=== PATIENT | female | born 1980 | race Caucasian/White ===

== ENCOUNTER 2016-08-15 09:40 | Emergency (ER) | payer OTHER ==
[~2016-08-15] VITALS: Ht 167.6 cm; Wt 65.0 kg
[~2016-08-15 09:40] MED LIST: BUPR150T8 PO; HYDR-4003 PO; LORA0.5T PO; OMEP20CA11 PO; ONDA8TAB10 PO; OXYC1TAB24 PO; SUMA20SP2 NS; VARENICLINE; ZLP5T PO; ZOLP5TAB2 SL
[2016-08-15 09:44] VITALS: BP 104/75; PULSE 88; RESP 14; O2SAT 98
[2016-08-15 10:12] LABS: BASOPHILS % (AUTO) 0.5 % (0-3); EOSINOPHILS % (AUTO) 2.1 % (0-5); MONOCYTES % (AUTO) 6.6 % (4-12); Mean Corpuscular Hemoglobin 30.4 pg (27.0-35.0); Mean Corpuscular Volume 89.7 fL (81-100); NEUTROPHILS % (AUTO) 52.3 % (40-74); Platelet Count 294 bil/L (150-400)
[2016-08-15] MEDS ORDERED: 0.9% Sodium Chloride 1,000 ML IV ONE (10:13)
--- NOTE | 2016-08-15 10:13 | ED.REPORT ---
HPI-Abd Pain F Under 40 Date of Service Aug 15, 2016 ED Provider: Isabel Delgado MD Patient is a 35 year old female w/ a hx of migraines who presents to the ED sent from due to RUQ abdominal pain for the past 4 days. Pain is exacerbated when eating. Pt c/o associated chills and "hot flashes." Pt has had an appendectomy and hysterectomy. Nursing Notes Stated Complaint: ABDOMINAL PAIN Chief Complaint: Female Abdominal Pain Nursing Notes Reviewed: Yes Allergies: Coded Allergies: Penicillins (Verified Allergy, Severe, HIVES, 05/29/16) Sulfa (Sulfonamide Antibiotics) (Verified Allergy, Severe, hives, 05/29/16) ketorolac (Verified Allergy, Intermediate, hives, 08/15/16) latex (Verified Allergy, Mild, 05/29/16) Scheduled Bupropion ER (Wellbutrin SR) 150 Mg Tablet.er 150 MG PO DAILY Omeprazole (Omeprazole) 20 Mg Capsule.dr 20 MG PO DAILY Sumatriptan (Sumatriptan) 20 Mg [place] 20 MG NS ONCE Scheduled PRN Hydrocodone-Acetaminophen 5-325 mg (Hydrocodone-Acetaminophen 5-325 mg) 1 Each Tablet 1-2 TABLET PO BID PRN PRN For Pain Lorazepam (Lorazepam) 0.5 Mg Tablet 0.5 MG PO DAILY PRN PRN For Insomnia Ondansetron ODT (Ondansetron ODT) 8 Mg Tab.rapdis 8 MG PO q8 hr PRN PRN For Nausea Zolpidem (Ambien) 5 Mg Tablet 5 MG PO HS PRN PRN For Insomnia oxyCODONE-Acetaminophen 5-325 mg (oxyCODONE-Acetaminophen 5-325 mg) 1 Each Tablet 1 TAB PO Q4H PRN PRN For Pain oxyCODONE-Acetaminophen 5-325 mg (oxyCODONE-Acetaminophen 5-325 mg) 1 Each Tablet 1-2 TAB PO Q6H PRN PRN For Pain Miscellaneous Medications ([chantix starting box]) 1 Zolpidem Tartrate (Edluar) 5 Mg Tab.subl 5 MG SL General Time Seen by MD: 10:12 Chief Complaint Abdominal pain Hx Obtained From: Patient Arrived By: Walk-in Sudden in Onset?: Yes Onset Occurred: 4 days ago Context of Onset: Eating Symptom Duration: Since onset Location: : RUQ Radiation: : Does not radiate Severity: Current: Moderate Recent Healthcare: No recent doctor visit, No recent hospitalization Similar Sx Previous: No Past Medical History Past Medical History Hx migraine Chronic opioid use Past Surgical History Reports: Appendectomy, Hysterectomy Smoking History Current Every Day Smoker Social History Alcohol Use: Denies alcohol use Drug Use: Denies drug use Occupation Works at [employer] Status Independent Review of Systems GI: Reports: Abdominal pain Complete sys rev & neg: except as marked. Physical Exam Initial Vital Signs Vital Signs (First) Date Time Temp Pulse Resp B/P Pulse Ox O2 Delivery O2 Flow Rate FiO2 08/15/16 09:44 36.6 88 14 104/75 98 Room Air Initial VS: Reviewed Head / Eyes: Atraumatic, Normocephalic, PERRL ENT: Mucous membranes moist, Conjunctiva normal, No scleral icterus Neck: Supple, Non-tender, Full range of motion Lymphatic: No lymphadenopathy Extremities: Vascular intact, Neuro intact, No swelling, No tenderness Skin: Warm, Dry, No cyanosis Neurologic: Alert, Oriented, Nonfocal Psychiatric: Mood/affect normal, Behavior normal, Normal thought content General/Constitutional: Awake, Alert, Cooperative, Not toxic appearing Respiratory / Chest: Atraumatic, Breath sounds NL, Breath sounds = bilat, No respiratory distress, No rales, No rhonchi, No wheezing, No retractions Cardiovascular: Heart rate NL, Regular rhythm, Heart sounds NL, No gallop, No murmurs, No rubs Abdomen: No guarding, No rebound, BS normoactive Tenderness/Guarding/Rebound: Positive: Tender RUQ... (Moderate) Back: Atraumatic, Inspection NL, Full range of motion, Painless range of motion , Non-tender, No midline vertebral tend Interpretation & Diagnostics Interpretation & Diagnostics: ABDOMINAL US IMPRESSION: A definite source of current symptoms is not seen. No biliary distention or evidence of gallstones or cholecystitis is found. Several punctate microcalcifications can be seen at the collecting system of the left kidney, and no obstruction is suspected. Dictated by: Andres Meléndez M.D. on 08/15/2016 at 11:49 Approved by: Andres Mleéndez M.D. on 08/15/2016 at 11:51 Lab Results Interpretation Result Diagram: 08/15/16 0930 08/15/16 0930 Test 08/15/16 09:30 White Blood Count 6.1th/mm3 (3.8-10.1) Red Blood Count 4.48mil/mm3 (3.90-5.20) Hemoglobin 13.6g/dL (12.0-15.6) Hematocrit 40.2% (35.0-46.0) Mean Corpuscular Volume 89.7fL (81-100) Mean Corpuscular Hemoglobin 30.4pg (27.0-35.0) Mean Corpuscular Hemoglobin Concent 33.8% (32.0-37.0) Red Cell Distribution Width 13.5% (12.3-15.4) Platelet Count 294bil/L (150-400) Neutrophils (%) (Auto) 52.3% (40-74) Lymphocytes (%) (Auto) 38.5% (14-46) Monocytes (%) (Auto) 6.6% (4-12) Eosinophils (%) (Auto) 2.1% (0-5) Basophils (%) (Auto) 0.5% (0-3) Sodium Level 140mEq/L (134-144) Potassium Level 3.5mEq/L (3.5-5.2) Chloride Level 102mEq/L (97-108) Carbon Dioxide Level 23mmol/L (18-29) Blood Urea Nitrogen 13mg/dL (6-20) Creatinine 0.53mg/dL (0.57-1.00) Estimat Glomerular Filtration Rate 189mL/min (>59) Glucose Level 109mg/dL (60-99) Calcium Level 9.1mg/dL (8.5-10.1) Magnesium Level 2.2mg/dL (1.6-2.6) Total Bilirubin 0.3mg/dL (0.0-1.2) Aspartate Amino Transf (AST/SGOT) 13U/L (0-50) Alanine Aminotransferase (ALT/SGPT) 10U/L (0-32) Alkaline Phosphatase 70U/L (25-150) Total Protein 7.4g/dL (6.4-8.4) Albumin 4.6g/dL (3.4-5.0) Lipase 30U/L (13-60) Re-Eval/Medical Decision Re-Evaluation/Progress : Time of Eval: 12:08 Patient Status: Pain improved Re-Evaluation/Progress Note: pT Counseled Regarding: Diagnosis, Lab results, Need for follow-up, When/why to return to ED Discharge & Departure Primary Impression: Abdominal Pain, Epigastric Ruled Out: Cholecystitis, Cholelithiases, Pancreatitis Disposition: Home Discharge Condition All VS Reviewed: Yes Condition: Stable Additional Instructions: Thank you for coming to the Emergency Department today. Your lab work and imaging is completely normal and does not show any signs of cholecystitis, cholelithiasis (stones in your gallbladder or a sick gallbladder) , pancreatitis or any acute diseasease. You could possibly be developing an ulcer. This can take 4-6 weeks to heal and potentially 2-3 weeks to stop hurting. Do not use Aspirin, Ibuprofen, or Aleve as that could aggravate your stomach. Take Tylenol for pain as needed and I will also give you a few Percocet. For severe headache you can use excerin sparingly. I am sending you home with one month of Omeprazole for stomach acid. Take this twice a day for 2 weeks, then decrease to daily for the rest of the month. Follow up with your primary care physician in the next 3-4 weeks. If you are still having pain, she may consider ordering a HIDA scan to look for gallbladder disfunction. Return to the Emergency Department if you experience any new or worsening symptoms. We hope you feel better soon! Referrals: You Spring MD (PCP) Edison Attestation Portion of this note were transcribed by Kishore Garcia. I, Dr. Delgado, personally performed the history, physical exam, and medical decision-making: I reviewed and confirmed the accuracy for the information in the transcribed note. Signed by: edison Carrillo, 08/15/16 1200 copies to: You Spring MD, Shawna L MD Aug 15, 2016 10:13 KISHORE GARCIA Aug 15, 2016 10:20
[2016-08-15] MEDS ORDERED: HYDROmorphone 0.5 mg/0.5 mL iSecure Syringe IVPUSH PRN (10:15)
[2016-08-15] MEDS ORDERED: Ondansetron 2 mg/mL 2 mL Inj IVPUSH PRN (10:15)
[2016-08-15 10:31] LABS: Magnesium 2.2 mg/dL (1.6-2.6)
[2016-08-15] MEDS ORDERED: Pantoprazole 4 mg/mL 10 mL Inj IVPUSH ONE (11:15)
--- NOTE | 2016-08-15 11:53 | DRSVH ---
PROCEDURE: US ABDOMEN INDICATIONS: RUQ pain TECHNIQUE: Real-time scanning was performed of the abdominal and retroperitoneal organs, with image documentatio n. COMPARISON: [facility], US, US ABDOMEN, 02/25/2016, 17:07. FINDINGS: Liver length: 18.90 cm Gallbladder Wall Thickness: 1.90 mm CHD: 2.20 mm CBD: 5.60 mm Spleen length: 9.36 cm Right kidney length: 11.70 cm Left kidney length: 11.31 cm Aorta(Proximal): 1.98 cm Aorta(Mid): 1.57 cm Aorta(Distal): 1.37 cm RCIA: 7.20 mm LCIA: 7.20 mm Liver: Liver is normal in size and homogeneous in echotexture. Gallbladder: The gallbladder appears normal Biliary ducts: Intrahepatic bile ducts are non-dilated. Extrahepatic bile duct caliber is normal. Normal is 6-7 mm or less in diameter, or 10 mm or less post-cholecystectomy. Pancreas: Visualized portions of the pancreas are sonographically normal. Spleen: Spleen is normal in size and homogeneous in echotexture. Splenic microcalcifications are no luis carlos. Kidneys: Kidneys are normal in size and echotexture. No hydronephrosis or obstructive nephrolithias is, and several punctate calculi can be noted on the left. No solid masses. Aorta: Visualized aorta is normal in caliber at less than 3 cm. Iliacs: Proximal common iliac arteries are normal in caliber at less than 2.5 cm. IVC: Intrahepatic inferior vena cava is patent. Miscellaneous: No free abdominal fluid. IMPRESSION: A definite source of current symptoms is not seen. No biliary distention or evidence of gallstones or cholecystitis is found. Several punctate microcalcifications can be seen at the [facility] ting system of the left kidney, and no obstruction is suspected. Dictated by: Andres Meléndez M.D. on 08/15/2016 at 11:49 Approved by: Andres Meléndez M.D. on 08/15/2016 at 11:51
[2016-08-15] MEDS ORDERED: OXYC1TAB24 PO (12:31)
[2016-08-15] MEDS ORDERED: HYDROmorphone 0.5 mg/0.5 mL iSecure Syringe ONE (12:46)
[2016-08-15] MEDS ORDERED: Ondansetron 2 mg/mL 2 mL Inj ONE (12:46)
[2016-08-15] MEDS ORDERED: Pantoprazole 4 mg/mL 10 mL Inj ONE (12:47)
[2016-08-15] MEDS ORDERED: HYDROmorphone 1 mg/mL Inj ONE (12:48)
[2016-08-15 12:56] VITALS: BP 116/71; PULSE 84; RESP 16; O2SAT 99
== END 2016-08-15 12:59 | disposition home or self-care (01) ==
LOC: SED 09:40
DX: R10.13 Epigastric pain (principal); F17.200 Nicotine dependence, unspecified, uncomplicated; Z90.49 Acquired absence of other specified parts of digestive tract; Z88.0 Allergy status to penicillin; Z88.2 Allergy status to sulfonamides; Z88.8 Allergy status to other drugs, medicaments and biological substances; Z91.040 Latex allergy status
CPT/HCPCS: 36415; 76700; 80053; 81002; 83690; 83735; 85025; 96361; 96374; 96375; 96376; 99285; A4300; G0463; J1170; J2405; J7030

== ENCOUNTER 2016-08-22 17:56 | Emergency (ER) | payer OTHER ==
[~2016-08-22] VITALS: Ht 167.6 cm; Wt 51.4 kg
[2016-08-22 17:59] VITALS: BP 117/86; PULSE 121; RESP 20; O2SAT 97
[2016-08-22] MEDS ORDERED: 0.9% Sodium Chloride 1,000 ML IV ONE (18:49)
--- NOTE | 2016-08-22 18:49 | ED.REPORT ---
HPI-Abd Pain F Under 40 Date of Service Aug 22, 2016 ED Provider: Eder SimonsO. A 35 year old female with a history of migraine, chronic opioid use, and endometriosis s/p multiple laparoscopies presents to the ED with severe diffuse abdominal pain onset two weeks ago. Her pain began in the center of her abdomen but has spread. Associated symptoms include anorexia and nausea. The patient denies diarrhea, urinary symptoms, hematochezia, constipation, or other symptoms. She was seen in the ED at onset and was discharged with Percocet and Omeprazole, but her pain has since progressed. Nursing Notes Stated Complaint: SEVERE STOMACHE PAIN Chief Complaint: Female Abdominal Pain Nursing Notes Reviewed: Yes Allergies: Coded Allergies: Penicillins (Verified Allergy, Severe, HIVES, 05/29/16) Sulfa (Sulfonamide Antibiotics) (Verified Allergy, Severe, hives, 05/29/16) ketorolac (Verified Allergy, Intermediate, hives, 08/15/16) latex (Verified Allergy, Mild, 05/29/16) Scheduled Bupropion ER (Wellbutrin SR) 150 Mg Tablet.er 150 MG PO DAILY Omeprazole (Omeprazole) 20 Mg Capsule.dr 20 MG PO DAILY Sumatriptan (Sumatriptan) 20 Mg [place] 20 MG NS ONCE Scheduled PRN Hydrocodone-Acetaminophen 5-325 mg (Hydrocodone-Acetaminophen 5-325 mg) 1 Each Tablet 1-2 TABLET PO BID PRN PRN For Pain Lorazepam (Lorazepam) 0.5 Mg Tablet 0.5 MG PO DAILY PRN PRN For Insomnia Ondansetron ODT (Ondansetron ODT) 8 Mg Tab.rapdis 8 MG PO q8 hr PRN PRN For Nausea Zolpidem (Ambien) 5 Mg Tablet 5 MG PO HS PRN PRN For Insomnia oxyCODONE-Acetaminophen 5-325 mg (oxyCODONE-Acetaminophen 5-325 mg) 1 Each Tablet 1 TAB PO Q4H PRN PRN For Pain oxyCODONE-Acetaminophen 5-325 mg (oxyCODONE-Acetaminophen 5-325 mg) 1 Each Tablet 1-2 TAB PO Q6H PRN PRN For Pain Miscellaneous Medications ([chantix starting box]) 1 Zolpidem Tartrate (Edluar) 5 Mg Tab.subl 5 MG SL General Time Seen by MD: 18:48 Chief Complaint Abdominal pain Hx Obtained From: Patient Arrived By: Walk-in Sudden in Onset?: No Onset Occurred: More than a week ago... (2 weeks) Symptom Duration: Since onset Progression since Onset: Gradually worsening Location: : Diffuse Quality: Painful Severity: Current: Moderate Severity: Maximum: Moderate Associated with: Reports: Anorexia, Nausea, Denies: Constipation, Diarrhea, Fever Pertinent Negative: Relieved by nothing Context Related History: Reports: Abdominal surgery, Endometriosis Recent Healthcare: Recent doctor visit Similar Sx Previous: Yes Past Medical History Past Medical History Migraines Endometriosis Chronic opioid use Past Surgical History Multiple laparoscopies Appendectomy Hysterectomy Smoking History Current Every Day Smoker Social History Alcohol Use: Denies alcohol use Drug Use: Denies drug use Occupation Works at [employer] Status Independent Review of Systems Review of Systems Note: - Urinary symptoms Constitutional: Denies: Fever Respiratory: Denies: Non-productive cough, Shortness of breath GI: Reports: Abdominal pain (Diffuse), Anorexia, Nausea, Denies: Constipation, Diarrhea, Hematochezia Complete sys rev & neg: except as marked. Physical Exam Initial Vital Signs Vital Signs (First) Date Time Temp Pulse Resp B/P Pulse Ox O2 Delivery O2 Flow Rate FiO2 08/22/16 17:59 37.2 121 20 117/86 97 Room Air Initial VS: Reviewed Head / Eyes: Atraumatic, Normocephalic ENT: Conjunctiva normal, No scleral icterus Neck: Supple, Full range of motion Skin: Warm, Dry, No cyanosis Neurologic: Alert, Oriented, Nonfocal Psychiatric: Mood/affect normal, Behavior normal, Normal thought content General/Constitutional: Awake, Alert Respiratory / Chest: Breath sounds NL, Breath sounds = bilat, No respiratory distress Cardiovascular: Heart rate NL, Regular rhythm, Heart sounds NL Abdomen: Soft, Non-tender Interpretation & Diagnostics URINE : Negative URINE DIPSTICK: 1.005 sp gravity 5 pH Normal Glucose Normal Urobilinogen Otherwise Negative Lab Results Interpretation Result Diagram: 08/22/16190908/22/161909 Test 08/22/16 19:10 08/22/16 19:42 08/22/16 22:49 White Blood Count 7.4th/mm3 (3.8-10.1) Red Blood Count 4.56mil/mm3 (3.90-5.20) Hemoglobin 13.8g/dL (12.0-15.6) Hematocrit 41.4% (35.0-46.0) Mean Corpuscular Volume 90.8fL (81-100) Mean Corpuscular Hemoglobin 30.3pg (27.0-35.0) Mean Corpuscular Hemoglobin Concent 33.3% (32.0-37.0) Red Cell Distribution Width 13.9% (12.3-15.4) Platelet Count 319bil/L (150-400) Neutrophils (%) (Auto) 46.0% (40-74) Lymphocytes (%) (Auto) 43.1% (14-46) Monocytes (%) (Auto) 6.1% (4-12) Eosinophils (%) (Auto) 4.2% (0-5) Basophils (%) (Auto) 0.5% (0-3) Sodium Level 143mEq/L (134-144) Potassium Level 3.8mEq/L (3.5-5.2) Chloride Level 103mEq/L (97-108) Carbon Dioxide Level 26mmol/L (18-29) Blood Urea Nitrogen 18mg/dL (6-20) Creatinine 0.50mg/dL (0.57-1.00) Estimat Glomerular Filtration Rate 202mL/min (>59) Glucose Level 97mg/dL (60-99) Calcium Level 9.5mg/dL (8.5-10.1) Magnesium Level 2.2mg/dL (1.6-2.6) Total Bilirubin 0.3mg/dL (0.0-1.2) Aspartate Amino Transf (AST/SGOT) 12U/L (0-50) Alanine Aminotransferase (ALT/SGPT) 13U/L (0-32) Alkaline Phosphatase 80U/L (25-150) Total Protein 7.6g/dL (6.4-8.4) Albumin 4.7g/dL (3.4-5.0) Lipase 26U/L (13-60) Lactic Acid Level 0.9mmol/L (0.4-2.0) Urine Color Straw (YELLOW) Urine Appearance Clear (CLEAR,HAZY) Urine pH 5.5 (5.0-8.0) Urine Specific [place] <1.005 (1.003-1.035) Urine Protein Negativemg/dL (NEG,TRACE) Urine Glucose (UA) Negativemg/dL (NEGATIVE) Urine Ketones Negativemg/dL (NEGATIVE) Urine Occult Blood Negative (NEGATIVE) Urine Nitrite Negative (NEGATIVE) Urine Bilirubin Negative (NEGATIVE) Urine Urobilinogen Normalmg/dL (NORMAL) Urine Leukocyte Esterase Negative (NEGATIVE) Urine RBC 0-2/hpf (0-2) Urine WBC 0-5/hpf (0-5) Urine Epithelial Cells Few/hpf (NONE-MOD) Urine Crystals None seen (NONE SEEN) Urine Bacteria Few/hpf (NONE-FEW) Urine Hyaline Casts None/lpf (NONE) Urine Granular Casts None seen (NONE SEEN) Urine Waxy Casts None seen (NONE SEEN) Urine Red Blood Cell Casts None seen (NONE SEEN) Urine White Blood Cell Casts None seen (NONE SEEN) Urine Mucus None seen (None Seen) Urine Trichomonas None seen (NONE SEEN) Urine Yeast None (NONE SEEN) Urinalysis Comment None Urine Culture Reflexed Not indicated CT Abd / Pelvis Interpretation IMPRESSION: 1. No acute process. No explanation for midline abdominal pain. 2. Appendix not seen. No evidence of appendicitis. 3. Remote granulomatous disease. Dictated by: Radha Crawford M.D. on 08/22/2016 at 21:27 Study type: Abdominal CT IV contrast, Abdom CT oral contrast Interpretation / Wet Read by: Interpret - Radiologist Re-Eval/Medical Decision Source of Hx: Old records Re-Evaluation/Progress : Time of Eval: 20:25 Patient Status: Condition improved Re-Evaluation/Progress Note: Patient rechecked. She is feeling better. Discussed with patient CT and lab results, diagnosis, and plan for discharge. Follow-up and return to the ER instructions given. Patient agrees with plan for care and all questions were addressed. Counseled Regarding: Diagnosis, Lab results, Need for follow-up, When/why to return to ED Discharge & Departure Primary Impression: Abdominal pain Abdominal location: generalized Qualified Code: R10.84 - Generalized abdominal pain Disposition: Home Discharge Condition All VS Reviewed: Yes Condition: Improved Patient Instructions: Acute Abdominal Pain (ED) Additional Instructions: Thank you for entrusting us with your care. Your lab work and CT today were reassuring. The cause of your pain is uncertain and you need close outpatient follow-up. Call your primary care provider or the referral physician for follow-up. For johnight, 1-2 [place] every six hours as needed for pain. Do not drink alcohol, drive, or consume acetaminophen while taking [place]. Return to the ER with any new or worsening symptoms. Referrals: [facility] (PCP) Scribe Attestation Portions of this note were transcribed by Sveta Hennessy. I, Dr. Martinez, personally performed the history, physical exam, and medical decision-making; I reviewed and confirmed the accuracy of the information in the transcribed note. Signed by: Genny Overton, 08/22/2016, 23:55 copies to: [facility] Daryn Martinez DO Aug 22, 2016 18:49 SVETA HENNESSY Aug 22, 2016 19:52
[2016-08-22 19:40] LABS: BASOPHILS % (AUTO) 0.5 % (0-3); EOSINOPHILS % (AUTO) 4.2 % (0-5); MONOCYTES % (AUTO) 6.1 % (4-12); Mean Corpuscular Hemoglobin 30.3 pg (27.0-35.0); Mean Corpuscular Volume 90.8 fL (81-100); Platelet Count 319 bil/L (150-400)
[2016-08-22] MEDS ORDERED: Iohexol 300 mg/mL 30 mL Inj PO ONE (19:45)
[2016-08-22] MEDS: HYDROmorphone 0.5 mg/0.5 mL iSecure Syringe IVPUSH PRN ×4 (19:56→21:52)
[2016-08-22] MEDS: Ondansetron 2 mg/mL 2 mL Inj IVPUSH PRN ×4 (19:56→21:52)
[2016-08-22 20:08] LABS: Magnesium 2.2 mg/dL (1.6-2.6)
--- NOTE | 2016-08-22 21:31 | DRSVH ---
PROCEDURE: CT ABDOMEN AND PELVIS WITH CONTRAST ([id number]) INDICATIONS: midline abdominal pain TECHNIQUE: After the administration of oral and intravenous contrast, 5 mm thick sections acquired from the diap hragms to the symphysis. 5 mm thick coronal and sagittal reformats were performed. For radiation do se reduction, the following was used: automated exposure control, adjustment of mA and/or kV accordi ng to patient size. COMPARISON: [facility], CT, KIDNEY/ URETER/BLADDER, 04/12/2014, 21:22. FINDINGS: Image quality: Excellent. ABDOMEN: Lung bases: Lung bases are clear. Heart size is normal. Solid organs: Liver and spleen are normal in size and enhancement. Scattered splenic calcifications are present. Gallbladder is within normal limits. Biliary system is non-dilated. Pancreas enhances normally. No adrenal nodules. Kidneys are normal in size and enhancement, without hydronephrosis. Peritoneum and bowel: Stomach, small bowel, and colon loops are normal in caliber and wall thickness . No free fluid or air. Appendix not seen. No evidence of appendicitis. Nodes and vessels: No retroperitoneal or mesenteric adenopathy. Aorta and inferior vena cava are no rmal in caliber. Miscellaneous: No ventral hernias. PELVIS: Genitourinary: Bladder wall thickness is normal. Miscellaneous: No inguinal hernias or adenopathy. Bones: No suspicious bony lesions. No vertebral body compression fractures. IMPRESSION: 1. No acute process. No explanation for midline abdominal pain. 2. Appendix not seen. No evidence of appendicitis. 3. Remote granulomatous disease. Dictated by: Radha Crawford M.D. on 08/22/2016 at 21:27 Approved by: Radha Crawford M.D. on 08/22/2016 at 21:29
[2016-08-22 23:01] LABS: APPEARANCE,URINE CLEAR (CLEAR,HAZY); COLOR,URINE STRAW (YELLOW); PH,URINE 5.5 (5.0-8.0)
[2016-08-22 23:02] LABS: OCCULT BLOOD,URINE NEGATIVE (NEGATIVE); UROBILINOGEN,URINE NORMAL (NORMAL)
[2016-08-22] MEDS ORDERED: _HYDROcodone/APAP 5-325 mg Tablet PO PRN (23:10)
[2016-08-22] MEDS ORDERED: _Ondansetron ODT 4 mg Tablet PO PRN (23:10)
[2016-08-23 00:07] VITALS: BP 98/67; PULSE 80; RESP 16; O2SAT 96
== END 2016-08-23 00:12 | disposition home or self-care (01) ==
LOC: SED 17:56
DX: R10.84 Generalized abdominal pain (principal); R11.0 Nausea; R63.0 Anorexia; G43.909 Migraine, unspecified, not intractable, without status migrainosus; F11.90 Opioid use, unspecified, uncomplicated; N80.9 Endometriosis, unspecified; F17.200 Nicotine dependence, unspecified, uncomplicated; Z88.0 Allergy status to penicillin; Z88.2 Allergy status to sulfonamides; Z88.8 Allergy status to other drugs, medicaments and biological substances; Z91.040 Latex allergy status
CPT/HCPCS: 36415; 74177; 80053; 81000; 83605; 83690; 83735; 85025; 96361; 96374; 96375; 96376; 99285; J1170; J2405; J7030; Q9967

== ENCOUNTER 2016-09-25 21:06 | Emergency (ER) | payer OTHER ==
[~2016-09-25] VITALS: Ht 167.6 cm; Wt 68.2 kg
[2016-09-25 21:39] VITALS: BP 115/87; PULSE 87; RESP 16; O2SAT 96
--- NOTE | 2016-09-25 22:11 | ED.REPORT ---
HPI-Abd Pain F Under 41 Date of Service Sep 25, 2016 ED Provider: Dash Vang MD Pt is a 36 year old female with a history of frequent migraines, recent endometriosis, chronic opioid use, who presents to the ED from her neurologist' s office with complaints of continued vomiting and worsening migraines that started 3 days ago. She reports that she gave herself Toradol injections and Zofran upon her symptoms, but they have been unable to be alleviated. She describes her pain as "10 times worse than her usual migraine" and sharp. Pt reports that her recent bouts of emesis have had blood in them. She denies any hematochezia, cough, congestion, or any other symptoms. Nursing Notes Stated Complaint: VOMITING BLOOD, ABDOMINAL PAIN, MIGRAINE Chief Complaint: Female Abdominal Pain Nursing Notes Reviewed: Yes Allergies: Coded Allergies: Penicillins (Verified Allergy, Severe, HIVES, 05/29/16) Sulfa (Sulfonamide Antibiotics) (Verified Allergy, Severe, hives, 05/29/16) ketorolac (Verified Allergy, Intermediate, hives, 08/15/16) latex (Verified Allergy, Mild, 05/29/16) Scheduled Bupropion ER (Wellbutrin SR) 150 Mg Tablet.er 150 MG PO DAILY Omeprazole (Omeprazole) 20 Mg Capsule.dr 20 MG PO DAILY Sumatriptan (Sumatriptan) 20 Mg [place] 20 MG NS ONCE Scheduled PRN Hydrocodone-Acetaminophen 5-325 mg (Hydrocodone-Acetaminophen 5-325 mg) 1 Each Tablet 1-2 TABLET PO BID PRN PRN For Pain Lorazepam (Lorazepam) 0.5 Mg Tablet 0.5 MG PO DAILY PRN PRN For Insomnia Ondansetron ODT (Ondansetron ODT) 8 Mg Tab.rapdis 8 MG PO q8 hr PRN PRN For Nausea Polyethylene Glycol 3350 (Miralax) 17 Gm Powd.pack 17 GM PO DAILY PRN PRN For Constipation Zolpidem (Ambien) 5 Mg Tablet 5 MG PO HS PRN PRN For Insomnia oxyCODONE-Acetaminophen 5-325 mg (oxyCODONE-Acetaminophen 5-325 mg) 1 Each Tablet 1 TAB PO Q4H PRN PRN For Pain oxyCODONE-Acetaminophen 5-325 mg (oxyCODONE-Acetaminophen 5-325 mg) 1 Each Tablet 1-2 TAB PO Q6H PRN PRN For Pain Miscellaneous Medications ([chantix starting box]) 1 Zolpidem Tartrate (Edluar) 5 Mg Tab.subl 5 MG SL General Time Seen by MD: 22:04 Chief Complaint Vomiting mild Hx Obtained From: Patient Arrived By: Walk-in Sudden in Onset?: Yes Onset Occurred: 3 days ago Symptom Duration: Since onset Location: : Diffuse Quality: Painful Severity: Current: Mild Severity: Maximum: Moderate Similar Sx Previous: Yes Past Medical History Past Medical History Migraines Endometriosis Chronic opioid use Past Surgical History Multiple laparoscopies Appendectomy Hysterectomy Smoking History Current Every Day Smoker Social History Alcohol Use: Denies alcohol use Drug Use: Denies drug use Occupation Works at [employer] Status Independent Review of Systems Constitutional: Denies: Chills, Fever, Malaise, Weakness - generalized Respiratory: Denies: Non-productive cough, Shortness of breath, Wheezing Cardiovascular: Denies: Chest pain, Syncope GI: Reports: Abdominal pain, Hematemesis, Nausea, Vomiting, Denies: Constipation, Diarrhea, Hematochezia Female: Denies: Dysuria, Flank pain Musculoskeletal: Denies: Back pain, Extremity pain, Neck pain Complete sys rev & neg: except as marked. Physical Exam Initial Vital Signs Vital Signs (First) Date Time Temp Pulse Resp B/P Pulse Ox O2 Delivery O2 Flow Rate FiO2 09/25/16 21:39 36.2 87 16 115/87 96 Room Air Initial VS: Reviewed Head / Eyes: Atraumatic, Normocephalic, PERRL ENT: Mucous membranes moist, Conjunctiva normal, No scleral icterus Neck: Supple, Non-tender, Full range of motion Skin: Warm, Dry, No cyanosis Neurologic: Alert, Oriented, Nonfocal General/Constitutional: Awake, Alert, No acute distress, Well appearing, Well developed Respiratory / Chest: Atraumatic, Breath sounds NL, Breath sounds = bilat, No respiratory distress Cardiovascular: Heart rate NL, Regular rhythm, Heart sounds NL, No gallop, No murmurs, No rubs Abdomen: Atraumatic, Soft, No guarding, No rebound Tenderness/Guarding/Rebound: Positive: Tender epigastric Back: Atraumatic, Inspection NL Interpretation & Diagnostics Lab Results Interpretation Result Diagram: 09/25/16222609/25/162226 Test 4/4/17 22:27 White Blood Count 7.8th/mm3 (3.8-10.1) Red Blood Count 4.15mil/mm3 (3.90-5.20) Hemoglobin 12.7g/dL (12.0-15.6) Hematocrit 37.8% (35.0-46.0) Mean Corpuscular Volume 91.1fL (81-100) Mean Corpuscular Hemoglobin 30.6pg (27.0-35.0) Mean Corpuscular Hemoglobin Concent 33.6% (32.0-37.0) Red Cell Distribution Width 14.1% (12.3-15.4) Platelet Count 314bil/L (150-400) Neutrophils (%) (Auto) 49.2% (40-74) Lymphocytes (%) (Auto) 39.9% (14-46) Monocytes (%) (Auto) 7.3% (4-12) Eosinophils (%) (Auto) 2.7% (0-5) Basophils (%) (Auto) 0.6% (0-3) Band Neutrophils % 0% (1-5) Sodium Level 138mEq/L (134-144) Potassium Level 4.0mEq/L (3.5-5.2) Chloride Level 100mEq/L (97-108) Carbon Dioxide Level 23mmol/L (18-29) Blood Urea Nitrogen 18mg/dL (6-20) Creatinine 0.50mg/dL (0.57-1.00) Estimat Glomerular Filtration Rate 201mL/min (>59) Glucose Level 82mg/dL (60-99) Calcium Level 9.6mg/dL (8.5-10.1) Magnesium Level 2.2mg/dL (1.6-2.6) Total Bilirubin 0.4mg/dL (0.0-1.2) Aspartate Amino Transf (AST/SGOT) 15U/L (0-50) Alanine Aminotransferase (ALT/SGPT) 14U/L (0-32) Alkaline Phosphatase 72U/L (25-150) Total Protein 7.5g/dL (6.4-8.4) Albumin 4.6g/dL (3.4-5.0) Lipase 26U/L (13-60) CT Abd / Pelvis Interpretation Conclusion: Moderate amount of formed sool within the colon. No acure inra-abdominal abnormality. Re-Eval/Medical Decision Med Decision/Clinical Course Med Decision/Clinical Course: 36-year-old female history of chronic opioid use, migraines presenting sent in by her neurologist for a typical migraine. She also reported some epigastric pain and emesis with possible blood. She had no emesis here. Vital signs stable. Her neurological exam was normal. Labs are stable. Pain resolved with Toradol and antiemetics. CT abdomen and pelvis no acute pathology. Patient felt much better and was discharged home with plans to take her home medications and follow-up with her regular doctors. Source of Hx: Old records Re-Evaluation/Progress : Time of Eval: 23:35 Counseled Regarding: Diagnosis, Lab results, Need for follow-up, When/why to return to ED Discharge & Departure Primary Impression: Migraine Migraine type: unspecified Status migrainosus presence: without status migrainosus Intractability: intractable Qualified Code: G43.919 - Migraine, unspecified, intractable, without status migrainosus Additional Impressions: Abdominal pain Constipation Disposition: Home Discharge Condition All VS Reviewed: Yes Condition: Stable Patient Instructions: Migraine Headache (ED) Additional Instructions: We were able to successfully alleviate your migraine today in the emergency department. Your labs were reassuring. Please follow up with your primary care provider to further address your frequent migraines. Your CT scan showed that you are mildly constipated. Return to the emergency department with any increasing headache, intractable vomiting or any other new or worsening symptoms. Referrals: [facility] (PCP) Jere Rodriguez MD Attestation Portions of this note were transcribed by Dr. Patino. I, Rita Azevedo personally performed the history, physical exam and medical decision-making; I reviewed and confirmed the accuracy of the information in the transcribed note. Signed by: Genny Meeks, 09/25 23:45 copies to: [facility]; Jere Rodriguez MD, Ben M MD Sep 25, 2016 22:11 NIMO AZEVEDO Sep 25, 2016 22:23
[2016-09-25] MEDS ORDERED: 0.9% Sodium Chloride 1,000 ML IV ONE (22:19)
[2016-09-25] MEDS ORDERED: MetoCLOpramide 5 mg/mL 2 mL Inj IVPUSH ONE (22:20)
[2016-09-25 22:39] LABS: BASOPHILS % (AUTO) 0.6 % (0-3); EOSINOPHILS % (AUTO) 2.7 % (0-5); MONOCYTES % (AUTO) 7.3 % (4-12); Mean Corpuscular Hemoglobin 30.6 pg (27.0-35.0); Mean Corpuscular Volume 91.1 fL (81-100); NEUTROPHILS % (AUTO) 49.2 % (40-74); Platelet Count 314 bil/L (150-400)
[2016-09-25 22:57] LABS: Magnesium 2.2 mg/dL (1.6-2.6)
[2016-09-26] MEDS ORDERED: POLY17PO6 PO (00:14)
--- NOTE | 2016-09-26 09:55 | DRSVH ---
PROCEDURE: CT ABDOMEN AND PELVIS WITH CONTRAST ([id number]) INDICATIONS: Left upper quadrant abdominal pain. TECHNIQUE: After the administration of intravenous contrast, 5 mm thick sections acquired from the diaphragm to the symphysis. 5 mm coronal and sagittal reformats were acquired. For radiation dose reduction, the following was used: automated exposure control, adjustment of mA and/or kV according to patient siz e. COMPARISON: [facility], CT, CT CHEST ABDOMEN PELVIS W CONTRAST, 04/11/2016, 1:[address] AM[address] [facility], CT, CT ABD PELVIS W CON, 08/22/2016, 21:15. FINDINGS: Image quality: Excellent. ABDOMEN: Lung bases: Dependent atelectasis the lung bases. Heart size is normal. Solid organs: Liver is mildly enlarged measuring 19.8 cm in length. Spleen is normal in size and enh ancement. There are punctate calcifications in spleen compatible with remote granulomatous infection s. Gallbladder is normal. Biliary system is non dilated. Pancreas enhances normally. No adrenal no dules. Kidneys demonstrate normal size and enhancement, without hydronephrosis. Peritoneum and bowel: There is a moderate amount of stool in colon. Bowel loops demonstrate normal w all thickness and caliber. No free fluid or air. Nodes and vessels: No retroperitoneal or mesenteric adenopathy by size criteria. Aorta and inferior vena cava are normal in size. Miscellaneous: No ventral hernias. PELVIS: Genitourinary: Bladder wall thickness is normal. Miscellaneous: No inguinal hernias or adenopathy. Bones: No suspicious bony lesions. No vertebral body compression fractures. IMPRESSION: 1. No acute intra-abdominal process. 2. Remote granulomas infectious involving spleen. 3. Mild hepatomegaly. 4. Moderate amount of stool in colon. Dictated by: Philip Soriano M.D. on 09/26/2016 at 9:51 Approved by: Philip Soriano M.D. on 09/26/2016 at 9:54
== END 2016-09-26 00:30 | disposition home or self-care (01) ==
LOC: SED 21:06
DX: G43.919 Migraine, unspecified, intractable, without status migrainosus (principal); K59.00 Constipation, unspecified; R10.13 Epigastric pain; F17.200 Nicotine dependence, unspecified, uncomplicated; Z88.0 Allergy status to penicillin; Z88.2 Allergy status to sulfonamides; Z88.8 Allergy status to other drugs, medicaments and biological substances; Z91.040 Latex allergy status
CPT/HCPCS: 36415; 74177; 80053; 83690; 83735; 85025; 96374; 96375; 99285; J1885; J2765; J7030; Q9967

== ENCOUNTER 2017-01-10 13:59 | Emergency (ER) | payer OTHER ==
[~2017-01-10] VITALS: Ht 167.6 cm; Wt 72.7 kg
[~2017-01-10 13:59] MED LIST changes: +POLY17PO6 PO
[2017-01-10 14:02] VITALS: BP 119/82; PULSE 103; RESP 10; O2SAT 98
--- NOTE | 2017-01-10 14:48 | ED.REPORT ---
HPI-Headache Date of Service Jan 10, 2017 ED Provider: Doc,Ed MD History of Present Illness: 36-year-old female here for right-sided periorbital migraine. It is throbbing in quality. Some visual floaters. She is nauseous and vomiting. Onset yesterday at 2 PM. It feels very similar to her previous migraines, worse though than any she has had a long time. She states usually goes to her neurologist and will get Dilaudid and fluids. She has tried all her regular migraine meds including Zofran Tylenol ibuprofen. No recent head trauma, no acute neuro symptoms. Nursing Notes Stated Complaint: MIGRAINE Chief Complaint: Headache Nursing Notes Reviewed: Yes Allergies: Coded Allergies: Penicillins (Verified Allergy, Severe, HIVES, 05/29/16) Sulfa (Sulfonamide Antibiotics) (Verified Allergy, Severe, hives, 05/29/16) latex (Verified Allergy, Mild, 05/29/16) Scheduled Bupropion ER (Wellbutrin SR) 150 Mg Tablet.er 150 MG PO DAILY Omeprazole (Omeprazole) 20 Mg Capsule.dr 20 MG PO DAILY Sumatriptan (Sumatriptan) 20 Mg [place] 20 MG NS ONCE Scheduled PRN Hydrocodone-Acetaminophen 5-325 mg (Hydrocodone-Acetaminophen 5-325 mg) 1 Each Tablet 1-2 TABLET PO BID PRN PRN For Pain Lorazepam (Lorazepam) 0.5 Mg Tablet 0.5 MG PO DAILY PRN PRN For Insomnia Ondansetron ODT (Ondansetron ODT) 8 Mg Tab.rapdis 8 MG PO q8 hr PRN PRN For Nausea Polyethylene Glycol 3350 (Miralax) 17 Gm Powd.pack 17 GM PO DAILY PRN PRN For Constipation Zolpidem (Ambien) 5 Mg Tablet 5 MG PO HS PRN PRN For Insomnia oxyCODONE-Acetaminophen 5-325 mg (oxyCODONE-Acetaminophen 5-325 mg) 1 Each Tablet 1 TAB PO Q4H PRN PRN For Pain oxyCODONE-Acetaminophen 5-325 mg (oxyCODONE-Acetaminophen 5-325 mg) 1 Each Tablet 1-2 TAB PO Q6H PRN PRN For Pain Miscellaneous Medications ([chantix starting box]) 1 Zolpidem Tartrate (Edluar) 5 Mg Tab.subl 5 MG SL General Time Seen by MD: 14:48 Chief Complaint Migraine headache Hx Obtained From: Patient Arrived By: Walk-in Sudden in Onset?: Yes Onset Occurred: 1 day ago Symptom Duration: Constant Location: : Occipital right Quality: Throbbing Severity: Current: Severe Severity: Maximum: Pain scale Similar Sx Previous: Yes Past Medical History Past Medical History Migraines Endometriosis Chronic opioid use Past Surgical History Multiple laparoscopies Appendectomy Hysterectomy Smoking History Current Every Day Smoker Social History Alcohol Use: Denies alcohol use Drug Use: Denies drug use Occupation Works at [employer] Status Independent Review of Systems Constitutional: Denies: Chills, Fatigue, Fever Eyes: Reports: Blurred right, Photophobia, Denies: Discharge right GI: Reports: Nausea, Vomiting Psychiatric: Denies: Change mental status Complete sys rev & neg: except as marked. Physical Exam Initial Vital Signs Vital Signs (First) Date Time Temp Pulse Resp B/P Pulse Ox O2 Delivery O2 Flow Rate FiO2 01/10/17 14:02 36.8 103 10 119/82 98 Room Air Initial VS: Reviewed, Vital signs normal ENT: Mucous membranes moist, Conjunctiva normal, No scleral icterus Respiratory: Breath sounds normal, Clear to auscultation, No respiratory distress Cardiovascular: Regular rate & rhythm, Heart sounds normal, Intact distal pulses Lymphatic: No lymphadenopathy Skin: Warm, Dry, No cyanosis Psychiatric: Mood/affect normal, Behavior normal, Normal thought content Head / Eyes: Normocephalic, PERRL, EOMI, No nystagmus, No photophobia, Conjunctiva NL, Temporal arteries NL trouble opening eyes and keeping eyes open Interpretation & Diagnostics Lab Results Interpretation Test 01/10/17 16:39 Hold Urine Received (Received) Re-Eval/Medical Decision Med Decision/Clinical Course Patient difficult to arouse in room when awakened she states she is feeling better and ready to go home after Reglan Benadryl and fluids. Denies IV drug use. Answering questions appropriately prior to d/c. u tox dip + for opiates, tca, MJ, Discharge & Departure Shift Change Sign-Out Response to Therapy: Improved Impression: Primary Impression: Migraine Migraine type: unspecified Status migrainosus presence: without status migrainosus Intractability: not intractable Qualified Code: G43.909 - Migraine, unspecified, not intractable, without status migrainosus Disposition: Home Discharge Condition All VS Reviewed: Yes Condition: Stable Patient Instructions: Migraine Headache (ED) Additional Instructions: It was a pleasure taking care of U today. Follow-up with your PCP for further migraine care. Take ibuprofen and/or Tylenol or urine normal home pain meds for further relief. Return if altered mental status, fevers or worsening symptoms. Referrals: Jere Rodriguez MD (PCP) EDSupervising Provider for APC: Silvia Mosley MD, Linnea K ARNP Jan 10, 2017 14:48
[2017-01-10] MEDS ORDERED: 0.9% Sodium Chloride 1,000 ML IV ONE (15:00)
[2017-01-10] MEDS ORDERED: MetoCLOpramide 5 mg/mL 2 mL Inj IVPUSH PRN (15:00)
[2017-01-10 17:05] VITALS: BP 90/55; PULSE 89; O2SAT 99
== END 2017-01-10 16:55 | disposition home or self-care (01) ==
LOC: SED 13:59
DX: G43.809 Other migraine, not intractable, without status migrainosus (principal); F17.200 Nicotine dependence, unspecified, uncomplicated; Z88.0 Allergy status to penicillin; Z88.2 Allergy status to sulfonamides; Z91.040 Latex allergy status
CPT/HCPCS: 81002; 96361; 96374; 96375; 99284; J1200; J2765; J7030